=== PATIENT | male | born 1950 | race Caucasian/White ===

== ENCOUNTER → 2017-04-13 | Outpatient (CLI) | payer OTHER ==
--- NOTE | 2017-04-13 12:57 | DIAGNOSTIC IMAGING REPORT ---
PET/CT SKULL-THIGH CLINICAL HISTORY: LUNG CANCER COMPARISON STUDY: No previous studies for comparison. FINDINGS: The patient was injected with 13.8 mCi of F 18 labeled FDG. Findings standard induction phase, PET/CT scanning was performed from the skull base to the upper thigh region. Activity within the neck is felt to be physiologic. There is pulmonary emphysema present. There is a somewhat linear/tubular focus of abnormal increased FDG activity within the right upper lobe demonstrating SUV maximum of 4.5. This corresponds to a combination of airspace opacities and focally dilated bronchi. The appearance tends to favor an infectious over neoplastic etiology. Given the strong clinical suspicion over a carcinoma however bronchoscopic evaluation should be considered. There are nonpathologically enlarged FDG avid right hilar lymph nodes with SUV maximum of 2.9. Within the abdomen, there is physiologic hepatic and splenic activity. There is physiologic urinary tract and bowel activity. There is no pathologic adrenal gland activity. There is mild nonspecific increased activity at the esophagogastric junction. The pelvis there is extensive artifact secondary to a right hip arthroplasty, and right pelvic reconstruction.. There is increased activity in the region the left inguinal canal. This could relate to prior hernia surgery clinical correlation this regard is advocated. This area has an FDG maximum of 3.2. There is an unexplained FDG avid subcutaneous nodule within the left inguinal region with SUV maximum of 2.8. This could represent a lymph node. IMPRESSION: 1. Foci of abnormal increased FDG activity within the right upper lobe. These have an SUV maximum of 4.5. The configuration and underlying CT scan abnormalities would tend to favor an infectious or neoplastic process. Given however the reported strong clinical suspicion over carcinoma, bronchoscopic evaluation should be considered in follow-up. There are nonpathologically enlarged mildly FDG avid right hilar lymph nodes. 2. Increased FDG activity in the region of the left inguinal canal superiorly. Correlation with any history of hernia repair is recommended 3. Nonspecific FDG avid 8 mm subcutaneous nodule within the left inguinal region. Electronically signed by: Ever Vázquez M.D. 04/13/2017 12:55 PM Dictated Date/Time: 04/13/2017 12:41 PM
== END | disposition home or self-care (01) ==
LOC: C.PET 09:30
PROVIDERS: ATTEND Family Medicine
DX: R91.8 Other nonspecific abnormal finding of lung field (principal); I12.9 Hypertensive chronic kidney disease with stage 1 through stage 4 chronic kidney disease, or unspecified chronic kidney disease; I25.10 Atherosclerotic heart disease of native coronary artery without angina pectoris; J44.9 Chronic obstructive pulmonary disease, unspecified; M12.9 Arthropathy, unspecified; N18.9 Chronic kidney disease, unspecified; R03.0 Elevated blood-pressure reading, without diagnosis of hypertension; Z79.899 Other long term (current) drug therapy; Z79.82 Long term (current) use of aspirin